=== PATIENT | female | born 1950 | race Caucasian/White ===

== ENCOUNTER 2017-09-30 09:39 | Emergency (ER) | payer OTHER ==
[~2017-09-30] VITALS: Wt 75.0 kg
[~2017-09-30 09:39] MED LIST: ASPI-535 PO; BENA20TA48 PO; PARO10OR PO; SIMV40TA3 PO; SITA50TA2 PO; [UNRECOGNIZED DRUG - CODE] PO
[2017-09-30] MEDS ORDERED: ACETAMINOPHEN 325 MG TAB PO ONE (10:30)
[2017-09-30] MEDS ORDERED: OSLT75C PO (10:52)
[2017-09-30] MEDS ORDERED: ACET500C5 PO (10:52)
[2017-09-30 11:03] LABS: ADD UMIC NO; UR ASCORBIC ACID 20 mg/dL (NEGATIVE); UR BILIRUBIN (Dip) NEGATIVE (NEGATIVE); UR BLOOD (Dip) NEGATIVE (NEGATIVE); UR CLARITY SLIGHTLY CLOUDY (CLEAR); UR COLOR YELLOW (YELLOW); UR GLUCOSE (Dip) 1+ mg/dL (NEGATIVE); UR KETONES (Dip) NEGATIVE (NEGATIVE); UR LEUKOCYTE ESTERASE (Dip) NEGATIVE Leu/ul (NEGATIVE); UR MUCUS MANY /HPF (NONE SEEN); UR NITRITE (Dip) NEGATIVE (NEGATIVE); UR RBC 1 /HPF (0-5); UR SQUAMOUS EPITHELIAL CELL FEW /HPF (FEW); UR TOTAL PROTEIN (Dip) NEGATIVE (NEGATIVE); UR UROBILINOGEN (Dip) NEGATIVE (NEGATIVE)
--- NOTE | 2017-09-30 11:06 | RADRPT ---
PROCEDURE: XR Chest. CLINICAL INDICATION: Cough, body aches TECHNIQUE: AP view of the chest was obtained. COMPARISON: 01/16/2014 FINDINGS: The cardiomediastinal silhouette is within normal limits. The lungs are clear. No pleural effusion or pneumothorax is identified. Visualized osseous structures appear intact. IMPRESSION: No evidence of active cardiopulmonary disease. RPTAT: VV .Abbe Dyer MD, Date Time Electronically viewed and signed by .Abbe Dyer MD, on 09/30/2017 11:06 .O/
--- NOTE | 2017-09-30 11:09 | ERD ---
ER Documentation Chief Complaint Chief Complaint cough,sore thoat, body aches x 3 days HPI 59-year-old female comes in with a 3 history of cough, sore throat, congestion body aches. Patient reports dry cough, painful swallowing but no difficulty handling her secretions. She describes body pain all over. She denies chest pain, shortness breath, hemoptysis, abdominal pain, nausea, vomiting. ROS All systems reviewed and are negative except as per history of present illness. Medications Home Meds Active Scripts Acetaminophen* (Tylophen*) 500 Mg Capsule, 1 CAP PO Q6H Y for PAIN AND OR ELEVATED TEMP, #20 CAP Prov:JOSSIE TIWARI PA-C 09/30/17 Oseltamivir Phosphate* (Tamiflu*) 75 Mg Capsule, 75 MG PO BID for 5 Days, CAP Prov:JOSSIE TIWARI PA-C 09/30/17 Benazepril Hcl* (Benazepril Hcl*) 20 Mg Tablet, 20 MG PO DAILY, #30 TAB Prov:JOSSIE TIWARI PA-C 09/15/16 Reported Medications Sitagliptin* (Januvia*) 50 Mg Tablet, 50 MG PO DAILY 01/16/14 Aspirin Ec (Aspir 81) 81 Mg Tablet.dr, 81 MG PO DAILY 12/11/11 Paroxetine Hcl (Paroxetine Hcl) 10 Mg/5 Ml Oral.susp, 20 MG PO DAILY 12/11/11 Benazepril Hcl* (Benazepril Hcl*) 20 Mg Tablet, 20 MG PO DAILY 12/11/11 Simvastatin (Simvastatin) 40 Mg Tablet, 40 MG PO HS 12/11/11 Glyburide, Micro/Metformin Hcl (Glyburide-Metformin 5-500 Mg) 1 Udtab Tablet, 2 UDTAB PO BID 12/11/11 Allergies Allergies: Coded Allergies: No Known Drug Allergies (Verified Allergy, Unknown, 02/24/15) Uncoded Allergies: NKDA (Allergy, Unknown, 01/16/14) PMhx/Soc History of Surgery: Yes (Hysterectomy) Anesthesia Reaction: No Hx Neurological Disorder: No Hx Respiratory Disorders: No Hx Cardiac Disorders: No Hx Psychiatric Problems: Yes (DEPRESSION TAKES MED) Hx Miscellaneous Medical Probl: Yes (DM, HTN) Hx Alcohol Use: No Hx Substance Use: No Hx Tobacco Use: No Smoking Status: Never smoker Physical Exam Vitals Vital Signs Date Time Temp Pulse Resp B/P Pulse Ox O2 Delivery O2 Flow Rate FiO2 09/30/17 09:42 98.2 99 18 140/76 99 Physical Exam General: Well-developed, well-nourished. The patient appears in no acute distress. HEENT: Head is normocephalic, atraumatic. No scleral icterus. Pupils are equal , round, and reactive. Oral mucous membranes are moist. No pharyngeal erythema. Neck: Supple. Nontender. Lungs: Clear to auscultation. Normal air movement. Heart: Regular rate and rhythm. S1 and S2 are normal. No murmurs, gallops, or rubs. Abdomen: Soft, nontender, nondistended. Bowel sounds are normoactive. Extremities: No clubbing or cyanosis. Normal pulses. Moving extremities x 4. No weakness. Neurologic: Alert and oriented 3. No focal deficits. Skin: Normal turgor. No rash or lesions. Results 24 hrs Laboratory Tests Test 09/30/17 10:23 09/30/17 10:41 Bedside Glucose 200mg/dL Urine Color YELLOW Urine Clarity SLIGHTLY CLOUDY Urine pH 5.0 Urine Specific [place] 1.020 Urine Ketones NEGATIVEmg/dL Urine Nitrite NEGATIVEmg/dL Urine Bilirubin NEGATIVEmg/dL Urine Urobilinogen NEGATIVEmg/dL Urine Leukocyte Esterase NEGATIVELeu/ul Urine Microscopic RBC 1/HPF Urine Microscopic WBC 1/HPF Urine Squamous Epithelial Cells FEW/HPF Urine Mucus MANY/HPF Urine Hemoglobin NEGATIVEmg/dL Urine Glucose 1+mg/dL Urine Total Protein NEGATIVEmg/dl Current Medications Medications (Trade) Dose Ordered Sig/Alonso Route PRN Reason Start Time Stop Time Status Last Admin Dose Admin Acetaminophen (Tylenol Tab) 650 mg ONCE ONCE PO 09/30/17 10:30 09/30/17 10:31 DC 09/30/17 10:21 PROCEDURE: XR Chest. CLINICAL INDICATION: Cough, body aches TECHNIQUE: AP view of the chest was obtained. COMPARISON: 01/16/2014 FINDINGS: The cardiomediastinal silhouette is within normal limits. The lungs are clear. No pleural effusion or pneumothorax is identified. Visualized osseous structures appear intact. IMPRESSION: No evidence of active cardiopulmonary disease. RPTAT: VV Signed By: Abbe Dyer M.d 09/30/2017 11:06:18 AM Procedures/MDM ED course: Chest x-ray was obtained that was normal. Accu-Chek normal. Urine analysis: negative for infection. MEDICAL DECISION MAKING: The patient is a 67-year-old female who comes in with influenza A. The patient has a differential diagnosis of a viral upper respiratory infection, bacterial upper respiratory infection, bronchitis, pneumonia, pharyngitis, laryngitis, epiglottitis, croup, pneumonia. Patient has a normal pulmonary examination, clear breath sounds, normal pulse oximetry, with no corrective measures needed at this time. Fluids, rest, antipyretics were encouraged. Patient's blood pressure was elevated (>120/80) but appears stable without evidence of hypertension emergency or urgency. The patient was counseled about the risks of hypertension and urged to pursue outpatient monitoring and therapy within a week with their primary care physician. Departure Diagnosis: Primary Impression: Influenza A Condition: Good Patient Instructions: Influenza (Adult) JOSSIE TIWARI PA-C Sep 30, 2017 11:09
== END 2017-09-30 11:20 | disposition home or self-care (01) ==
LOC: FTE 09:39
DX: J10.1 Influenza due to other identified influenza virus with other respiratory manifestations (principal); E11.9 Type 2 diabetes mellitus without complications; I10 Essential (primary) hypertension; Z79.82 Long term (current) use of aspirin; Z79.84 Long term (current) use of oral hypoglycemic drugs
CPT/HCPCS: 71010; 81001; 81003; 82962; 87400

== ENCOUNTER 2018-04-15 12:07 | Emergency (ER) | END 2018-04-15 16:37 | disposition home or self-care (01) ==

== ENCOUNTER 2018-06-24 06:45 | Emergency (ER) | END 2018-06-24 07:59 | disposition home or self-care (01) ==